=== PATIENT | female | born 1975 | race Asian ===

== ENCOUNTER 2019-04-21 17:14 | Emergency (ER) | payer OTHER ==
[~2019-04-21] VITALS: Ht 165.1 cm; Wt 57.2 kg
[2019-04-21 17:20] VITALS: BP 141/72
[2019-04-21] MEDS ORDERED: IBUPROFEN 600 MG TABLET PO ONE ×2 (17:30→17:51)
== END 2019-04-21 18:50 | disposition home or self-care (01) ==
LOC: ER 17:19
DX: S39.012A Strain of muscle, fascia and tendon of lower back, initial encounter (principal); S80.12XA Contusion of left lower leg, initial encounter; V03.99XA Pedestrian with other conveyance injured in collision with car, pick-up truck or van, unspecified whether traffic or nontraffic accident, initial encounter; Y93.01 Activity, walking, marching and hiking; Y92.89 Other specified places as the place of occurrence of the external cause; Y99.8 Other external cause status
CPT/HCPCS: 72110-TC; 73590-TC